=== PATIENT | female | born 1985 | race Two or more races ===

== ENCOUNTER 2018-10-12 04:41 | Emergency (ER) | payer SELFPAY ==
[~2018-10-12] VITALS: Ht 180.3 cm; Wt 133.8 kg
[2018-10-12 08:29] VITALS: BP 129/74
== END 2018-10-12 08:42 | disposition home or self-care (01) ==
LOC: EDBD 04:41 → ER 04:41
DX: R51 Headache (principal); E66.9 Obesity, unspecified; Z68.41 Body mass index [BMI] 40.0-44.9, adult; Z90.49 Acquired absence of other specified parts of digestive tract
CPT/HCPCS: 70450